=== PATIENT | female | born 1965 | race Two or more races ===

== ENCOUNTER 2020-06-30 15:52 | Emergency (ER) | payer OTHER ==
[~2020-06-30] VITALS: Ht 157.5 cm; Wt 61.7 kg
[2020-06-30 16:32] VITALS: Ht 157.5 cm; Wt 61.7 kg
[2020-06-30 18:36] VITALS: BP 160/100
[2020-07-01 08:59] LABS: UA SPECIFIC GRAVITY <=1.005 (1.005-1.035); microscopic required? YES; urine erythrocyte 3+ (NEGATIVE)
== END 2020-06-30 18:15 | disposition home or self-care (01) ==
LOC: ED 15:52
PROVIDERS: Emergency Medicine
DX: N10 Acute pyelonephritis (principal); Z90.710 Acquired absence of both cervix and uterus